=== PATIENT | female | born 1975 | race African-American/Black ===

== ENCOUNTER 2016-12-23 15:55 | Emergency (ER) | payer MEDICAID, OTHER ==
[~2016-12-23] VITALS: Ht 162.6 cm; Wt 99.0 kg
[2016-12-23] MEDS ORDERED: ONDANSETRON HCL 4MG/2ML VIAL IV STA (18:54)
[2016-12-23] MEDS ORDERED: KETOROLAC 30MG/ML VIAL IV STA (18:54)
[2016-12-23] MEDS ORDERED: SODIUM CHLORIDE 0.9% 1,000 ML IV ONE (18:54)
[2016-12-23 19:23] LABS: BASOPHILS % 0.5 % (0.0-2.0); EOSINOPHILS % 3.1 % (0.0-5.0); HEMATOCRIT. 35.1 % (36.0-48.0); LYMPHOCYTES % 39.5 % (20.0-50.0); MEAN CORPUSCULAR HEMOGLOBIN 29.8 pg (28.0-32.0); MEAN CORPUSCULAR VOLUME 87.4 fL (81.0-99.0); MEAN PLATELET VOLUME 7.7 fl (7.4-10.4); MONOCYTES % 5.5 % (2.0-8.0); NEUTROPHILS % 51.4 % (40.0-76.0); PLATELET 265 x1000/uL (130-400); RED BLOOD CELL COUNT 4.02 mill/uL (4.2-5.4); RED CELL DISTRIBUTION WIDTH 14.6 % (11.6-14.6)
[2016-12-23 19:24] LABS: CHLORIDE 104 mEq/L (98-107)
[2016-12-23 19:27] LABS: PROTHROMBIN TIME 10.6 sec
[2016-12-23 19:33] LABS: CARBON DIOXIDE 30 mEq/L (21-32)
[2016-12-23 21:14] VITALS: BP 142/92
== END 2016-12-23 21:15 | disposition home or self-care (01) ==
LOC: ER 15:55
DX: R51 Headache (principal); I10 Essential (primary) hypertension; Z98.890 Other specified postprocedural states
CPT/HCPCS: 36415; 70450; 80053; 81025; 85025; 85610; 93005; 96361; 96374; 96375; 99285; J1885; J2405; J7030; Z7610

== ENCOUNTER 2019-04-19 18:45 | Inpatient (IN) | payer MEDICAID, OTHER ==
[~2019-04-19] VITALS: Ht 162.6 cm; Wt 89.8 kg
[2019-04-19 21:39] LABS: BASOPHILS % 0.4 % (0.0-2.0); HEMATOCRIT. 37.1 % (36.0-48.0); HEMOGLOBIN. 12.9 g/dL (12.0-16.0); LYMPHOCYTES % 24.9 % (20.0-50.0); MEAN CORPUSCULAR HEMOGLOBIN 30.3 pg (28.0-32.0); MEAN CORPUSCULAR VOLUME 86.9 fL (81.0-99.0); MEAN PLATELET VOLUME 7.1 fl (7.4-10.4); MONOCYTES % 5.6 % (2.0-8.0); NEUTROPHILS % 68.1 % (40.0-76.0); PLATELET 316 x1000/uL (130-400); RED BLOOD CELL COUNT 4.26 mill/uL (4.2-5.4); RED CELL DISTRIBUTION WIDTH 14.3 % (11.6-14.6)
[2019-04-19 21:44] LABS: CHLORIDE 91 mEq/L (98-107)
[2019-04-19] MEDS ORDERED: ACETAMINOPHEN 325MG TABLET PO ONE (22:15)
[2019-04-19] MEDS ORDERED: IBUPROFEN 200MG TABLET PO ONE (22:15)
[2019-04-19] MEDS ORDERED: MAGNESIUM 2 G PREMIX 50 ML IV ONE (22:45)
[2019-04-19] MEDS ORDERED: KCL 20MEQ/100ML PREMIX 100 ML IV ONE (22:45)
[2019-04-19] MEDS ORDERED: POTASSIUM CHLORIDE 20MEQ TABLET SR PO ONE (22:45)
[2019-04-20] MEDS ORDERED: MORPHINE SULFATE 4 MG/ML CPJ (NOT FOR IM USE) IV ONE (01:00)
[2019-04-20] MEDS ORDERED: ACETAMINOPHEN 325MG TABLET PO PRN (05:00)
[2019-04-20] MEDS ORDERED: GUAIFENESIN 200MG/10ML SUGAR FREE UDC PO PRN (05:00)
[2019-04-20] MEDS ORDERED: HYDROCODONE/ACETAMINOPHEN 5/325MG TABLET PO PRN (05:00)
[2019-04-20] MEDS ORDERED: NA PHOS,M-B/NA PHOS,DI-BA ENEMA 118ML PR PRN (05:00)
[2019-04-20] MEDS ORDERED: MAGNESIUM/ALUMINUM HYDROXIDE/SIMETHICONE 30ML UDC PO PRN (05:00)
[2019-04-20] MEDS ORDERED: IPRATROPIUM/ALBUTEROL 0.5-3(2.5)MG/3ML NEB NEB PRN (05:00)
[2019-04-20] MEDS ORDERED: DOCUSATE SODIUM 100MG CAPSULE PO PRN (05:00)
[2019-04-20] MEDS ORDERED: LORAZEPAM 2MG/ML CPJ IV PRN (05:00)
[2019-04-20] MEDS ORDERED: DIPHENHYDRAMINE 50MG/ML VIAL IV PRN (05:00)
[2019-04-20] MEDS ORDERED: ONDANSETRON HCL 4MG/2ML INJ IV PRN (05:00)
[2019-04-20] MEDS ORDERED: CLONIDINE 0.1MG TABLET PO PRN (05:00)
[2019-04-20 05:56] LABS: CHLORIDE 97 mEq/L (98-107)
[2019-04-20] MEDS ORDERED: POTASSIUM CHLORIDE 20MEQ TABLET SR PO ONE (06:39)
[2019-04-20] MEDS ORDERED: POTASSIUM CHLORIDE INJ 40 MEQ in DEXT 5% WATER 500 ML IV ONE (07:00)
[2019-04-20 09:00] VITALS: BP 100/61
[2019-04-20] MEDS ORDERED: ENOXAPARIN 40MG/0.4ML SYR SUBCUT SCH (09:00)
[2019-04-20 12:00] VITALS: BP 117/72
[2019-04-20] MEDS: DEXT 5%/0.45% NACL KCL 10MEQ/L 1,000 ML IV SCH (13:11)
[2019-04-20] MEDS: ASPIRIN 81MG EC TABLET PO SCH (13:11)
[2019-04-20 13:29] VITALS: BP 117/72
[2019-04-20] MEDS ORDERED: ESCI5SOL2 PO (14:22)
[2019-04-20] MEDS ORDERED: MULT-9 MT (14:22)
[2019-04-20] MEDS ORDERED: IBUP-2029 MT (14:22)
[2019-04-20] MEDS ORDERED: LISI-652 MT (14:22)
[2019-04-20] MEDS ORDERED: CLON0.1T MT (14:23)
[2019-04-20] MEDS ORDERED: HYDR12.54 MT (14:23)
[2019-04-20] MEDS ORDERED: LABE100T5 MT (14:23)
[2019-04-20] MEDS ORDERED: ASPI-986 MT (14:23)
[2019-04-20] MEDS ORDERED: CYCL10TA7 MT (14:23)
[2019-04-20] MEDS ORDERED: [UNRECOGNIZED DRUG - CODE] MT (14:59)
[2019-04-20 15:38] LABS: CREATINE KINASE MB FRACTION 6.4 ng/mL (0.5-3.6)
[2019-04-20 15:49] LABS: CREATINE KINASE 1048 IU/L (26-192)
[2019-04-20] MEDS: MORPHINE SULFATE 2 MG/ML CPJ (NOT FOR IM USE) IV PRN ×2 (15:59→23:32)
[2019-04-20 20:00] VITALS: BP 122/101
[2019-04-20 23:57] LABS: CREATINE KINASE MB FRACTION 6.3 ng/mL (0.5-3.6)
[2019-04-21] VITALS: BP 131/78
[2019-04-21 04:00] VITALS: BP 123/84
[2019-04-21] MEDS: DEXT 5%/0.45% NACL KCL 10MEQ/L 1,000 ML IV SCH (05:35)
[2019-04-21] MEDS: MORPHINE SULFATE 2 MG/ML CPJ (NOT FOR IM USE) IV PRN ×3 (05:44→17:24)
[2019-04-21 07:18] LABS: BASOPHILS % 0.7 % (0.0-2.0); EOSINOPHILS % 2.1 % (0.0-5.0); HEMATOCRIT. 35.2 % (36.0-48.0); HEMOGLOBIN. 12.1 g/dL (12.0-16.0); MEAN CORPUSCULAR HEMOGLOBIN 29.9 pg (28.0-32.0); MEAN CORPUSCULAR VOLUME 87.1 fL (81.0-99.0); MEAN PLATELET VOLUME 7.4 fl (7.4-10.4); MONOCYTES % 5.8 % (2.0-8.0); NEUTROPHILS % 50.4 % (40.0-76.0); PLATELET 297 x1000/uL (130-400); RED BLOOD CELL COUNT 4.05 mill/uL (4.2-5.4); RED CELL DISTRIBUTION WIDTH 14.3 % (11.6-14.6)
[2019-04-21 07:22] LABS: CHLORIDE 102 mEq/L (98-107)
[2019-04-21 07:35] LABS: LDL CHOLESTEROL 40 mg/dL (5-100)
[2019-04-21 07:36] LABS: CREATINE KINASE 841 IU/L (26-192); CREATINE KINASE MB FRACTION 5.1 ng/mL (0.5-3.6); HDL CHOLESTEROL 63 mg/dL (40-59); T4 FREE 1.16 ng/dL (0.76-1.46)
[2019-04-21 08:00] VITALS: BP 117/81
[2019-04-21] MEDS ORDERED: ENOXAPARIN 30MG/0.3ML SYR SUBCUT SCH (09:00)
[2019-04-21] MEDS: ASPIRIN 81MG EC TABLET PO SCH (09:04)
[2019-04-21 11:32] VITALS: BP 117/81
[2019-04-21 12:00] VITALS: BP 134/93
[2019-04-21] MEDS ORDERED: POTASSIUM CHLORIDE 20MEQ TABLET SR PO NR (15:15)
[2019-04-21 20:00] VITALS: BP 137/84
== END 2019-04-21 21:30 | disposition home or self-care (01) | DRG 425 ==
LOC: ER 18:45 → 6WST 04-20 → ENRESERV 04-20 08:14 → 8WST 04-20 22:25
PROVIDERS: ADMIT Internal Medicine; ATTEND Internal Medicine
DX: E87.6 Hypokalemia (principal); I50.9 Heart failure, unspecified; M62.82 Rhabdomyolysis; I11.0 Hypertensive heart disease with heart failure; R07.9 Chest pain, unspecified; I25.10 Atherosclerotic heart disease of native coronary artery without angina pectoris; E78.5 Hyperlipidemia, unspecified; Q61.3 Polycystic kidney, unspecified; Z79.899 Other long term (current) drug therapy; Z98.891 History of uterine scar from previous surgery; Z88.0 Allergy status to penicillin
CPT/HCPCS: 36415; 71046; 76770; 80048; 80061; 82550; 82553; 83036; 83735; 83880; 84439; 84443; 84484; 85379; 93005; 93306; 93970; 96365; 96367; 99285; J1650; J2060; J2270; J3475; J3480; J7060